=== PATIENT | male | born 1965 | race Caucasian/White ===

== ENCOUNTER 2018-10-26 08:41 | Emergency (ER) | payer BC ==
[2018-10-26 08:49] VITALS: BP 142/98; PULSE 92; TEMP 97.9; BMI 33.9
[2018-10-26] MEDS ORDERED: IBUPROFEN 600 MG TABLET (FP) PO ONE ×2 (08:55→08:59)
[2018-10-26] MEDS ORDERED: ALBUTEROL SO4 2.5/IPRATROPIUM 0.5 INH SOL 3 ML VIAL.NEB. NEB ONE ×2 (08:59→09:21)
--- NOTE | 2018-10-26 09:02 | PDOC ---
History of Present Illness - General Chief Complaint: Cold Symptoms Stated Complaint: productive cough Time Seen by Provider: 10/26/18 08:43 History Source: Patient, Family Exam Limitations: No Limitations - History of Present Illness Initial Comments: 10/26/18 09:01 HPI 53 year old male, with a significant past medical history of pancreatitis, pancreatic and liver cysts, hernia operations (3x), large mass removed from intestines by colonoscopy (3 years ago), intestinal polyps presenting to the ED with 1 week of intermittent productive cough, chest tightness and wheezing/SOB. He notes a productive brown cough and mild nasal congestion. Bilateral Chest discomfort worse with coughing and moving, +nausea. +subjective chills and sweats. +myalgias, in his legs, arms, back and chest wall. Has been taking nyquil and tylenol with effect to the cough. 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 No travel history. No new changes in medications. Allergies: levaquin Past Medical History: pancreatitis, pancreatic and liver cysts, hernia operations (3x), large mass removed from intestines by colonoscopy (3 years ago) , intestinal polyps Social history: Lives with family. No smoking. No alcohol. No illicit drugs. Surgical history: inguinal hernia repairs, intestinal polypectomies Family history: noncontributory PMD: Dr Nic LOTT Constitutional: no fevers. +sweats. +subjective chills. HEENT: +hoarse voice, sore throat; no headache or dizziness. No ear pain. No visual/hearing disturbances. CVS: no syncope or palpitations. +chest tightness Resp: +cough, congestion, +wheezing, SOB Gastrointestinal: no abdominal pain, diarrhea or vomiting. +nausea. Genitourinary: no urinary sx, hematuria. MUSCULOSKELETAL: +myalgias, +neck pain, +back pain. No arthralgias. SKIN: no redness or skin changes, no discharge, no rash. No wounds. Hematologic: no easy bruising/bleeding. NEUROLOGIC: No headache, dizziness, LOC or altered mental status. No weakness, numbness or tingling. Allergic/Immunologic: no environemental allergies All other systems reviewed and negative, or as documented in HPI. PE: General: Well appearing, awake and alert, NAD. speaking full clear sentences. HEENT: NCAT, PERRL, EOMI, clear conjunctiva, anicteric, moist mucus membranes, clear oropharynx, no oral lesions.. +hoarse voice. Neck: neck supple, FROM Resp: +coughing. CTAB, normal and even respirations, no respiratory distress CVS: RRR, no murmurs, 2+ peripheral pulses throughout, no peripheral edema Abdomen: soft, NTND, no peritoneal signs. Back: nontender, normal inspection and ROM MSK: no edema, OLIVAREZ x4, ROM intact. No clubbing or cyanosis. normal bulk and tone. Extremities: no calf tenderness Neuro: alert, oriented appropriately; no focal neurologic deficits Skin: warm and well perfused, cap refill <2 sec, normal color Past History - Past Medical History Allergies/Adverse Reactions: Allergies Allergy/AdvReac Type Severity Reaction Status Date / Time levofloxacin [From Levaquin] Allergy Verified 10/26/18 08:42 Home Medications: Ambulatory Orders Atorvastatin Ca [Lipitor] 10 mg PO DAILY 01/16/14 Albuterol Sulfate Inhaler - [Ventolin HFA Inhaler -] 1 - 2 inh PO Q4H PRN #1 inhaler 10/26/18 Azithromycin [Zithromax 250mg Tablets -] 250 mg PO UTDICT #6 tab 10/26/18 COPD: No CHF: No GI Disorders: (COLITIS H/O) Hypercholesterolemia: Yes Thyroid Disease: No - Surgical History Abdominal Surgery: Yes (2 hernia repair) Orthopedic Surgery: No - Suicide/Smoking/Psychosocial Hx Smoking History: Never smoked Have you smoked in the past 12 months: No Hx Alcohol Use: No Drug/Substance Use Hx: No Substance Use Type: None *Physical Exam - Vital Signs Last Vital Signs Temp Pulse Resp BP Pulse Ox 97.9 F 92 H 18 142/98 99 10/26/18 08:42 10/26/18 08:42 10/26/18 08:42 10/26/18 08:42 10/26/18 08:42 Moderate Sedation - Procedure Monitoring Vital Signs: Procedure Monitoring Vital Signs Temperature 97.9 F 10/26/18 08:42 Pulse Rate 92 H 10/26/18 08:42 Respiratory Rate 18 10/26/18 08:42 Blood Pressure 142/98 10/26/18 08:42 O2 Sat by Pulse Oximetry (%) 99 10/26/18 08:42 Heart Score/ECG Review - ECG Impressions Normal ECG: Yes Comment:: 10/26/18 09:57 EKG normal sinus rhythm, no interval abnormalities, narrow QRS, ST and T wave segments and morphology normal. Nonspecific T wave abnormalities ED Treatment Course - RADIOLOGY Radiology Studies Ordered: Category Date Time Status CHEST PA & LAT [RAD] Stat Radiology 10/26/18 08:56 Ordered Medical Decision Making - Medical Decision Making 10/26/18 09:56 Hpi as documented VS wnl, no fever, no tachy or hypoxia/respiratory distress. DDx URI, viral syndrome. Pneumonia, pleurisy, influenza, bronchitis. No smoking history. No PE risk factors, more likely infectious. EKG nonischemic, no e/o vito - or myocarditis. No pleuritic chest pain, most of chest discomfort with coughing and laterally/diffusely. Also 1 week of sx, so no tamiflu benefit or testing. Will do CXR to check for pna Chest Xray Interpreted by ED Physician: CXR (1 view): no acute abnormality: no infiltrates/ PNA, bones appear intact and structures normal alignment, cardiac silhouette within normal limits. no free air under diaphragm, no pneumothorax. ED course: no acute events, HD appropriate. Given duonebs x3, analgesia with ibuprofen, reassessed and feels much improved.. Pt and family request abx, despite neg CXR and no e/o pneumonia, discussed risks and benefits of treatment, as this is most likely viral, but pt elects for abx in case does not resolve. Will rx Zpak x 5 day course per pt request.. salt water gargles and warm lemon tea is appropriate as well for soothing qualities for sore throat/cough. minimize spread of infection given contagious nature, and cover your mouth and wash your hands adequately with soap and water. Stay well hydrated and rest. otc mucinex or cough drops as needed. rx albuterol inhaler prn Q4-6 hr for cough/wheeze. expectant management. Pt informed of my clinical impression, treatment recommendations and disposition plan. All questions answered to patient's satisfaction and expressed understanding and comfort with this. Reasons for returning to the ED sooner discussed with the patient otherwise, follow up with primary care physician. At the time of discharge, the patient is alert, clinically improved, tolerating po and verbalizes understanding of instructions. Patient does not suffer from an acute life-threatening medical condition at this time she is safe for outpatient follow-up. 10/26/18 09:57 *DC/Admit/Observation/Transfer Diagnosis at time of Disposition: Bronchitis URI (upper respiratory infection) Qualifiers: URI type: unspecified URI Qualified Code(s): J06.9 - Acute upper respiratory infection, unspecified - Discharge Dispostion Disposition: HOME Condition at time of disposition: Stable Decision to Admit order: No - Prescriptions Prescriptions: Albuterol Sulfate Inhaler - [Ventolin HFA Inhaler -] 1 - 2 inh PO Q4H PRN #1 inhaler PRN Reason: Cough Azithromycin [Zithromax 250mg Tablets -] 250 mg PO UTDICT #6 tab - Referrals Referrals: Sanford Lucero MD [Primary Care Provider] - - Patient Instructions Printed Discharge Instructions: DI for Acute Bronchitis, DI for Viral Upper Respiratory Infection -- Adult Additional Instructions: Your respiratory infection that can cause a fever, cough, and trouble breathing. Please continue all antibiotics as directed until complete. Nutrition is important - eat small frequent meals. Get lots of rest and drink fluids. Call your Primary Care Doctor upon arrival home from the hospital and make a follow-up appointment in 2-3 days. If your cough worsens, you develop a fever greater than 100.4, you develop shaking chills, a fast heartbeat, trouble breathing and/or feel you are are breathing much faster than usual, call your Primary Care Doctor or return to the ED. Make sure you wash your hands frequently. you were not tested for the flu because you have had symptoms x 1 week, and out of window for tamiflu benefit of time course reduction salt water gargles and warm lemon tea is appropriate as well for soothing qualities for sore throat/cough. minimize spread of infection given contagious nature, and cover your mouth and wash your hands adequately with soap and water. Stay well hydrated and rest. you can also take mucinex for breaking up your mucus when you cough you can take over the counter cough drops as needed as well. May use the albuterol inhaler every 4-6 hours as needed for cough and breathing to clear up your airways if there is wheezing. Return precautions include respiratory distress, difficulty breathing, chest pain, lethargy, confusion, dehydration, high fevers or pain. - Post Discharge Activity Forms/Work/School Notes: Back to Work
[2018-10-26] MEDS: ALBUTEROL SO4 2.5/IPRATROPIUM 0.5 INH SOL 3 ML VIAL.NEB. NEB SCH ×4 (09:09→09:45)
--- NOTE | 2018-10-26 12:38 | EKG ---
Test Reason : Blood Pressure : / mmHG Vent. Rate : 090 BPM Atrial Rate : 090 BPM P-R Int : 158 ms QRS Dur : 102 ms QT Int : 362 ms P-R-T Axes : 038 003 029 degrees QTc Int : 442 ms NORMAL SINUS RHYTHM NON-SPECIFIC INTRA-VENTRICULAR CONDUCTION DELAY WHEN COMPARED WITH ECG OF 29-JAN-2014 15:20, NO SIGNIFICANT CHANGE WAS FOUND Confirmed by KUSHAL FINK MD ([id number]) on 10/26/2018 12:37:56 PM Referred By: Confirmed By:KUSHAL FINK MD
== END 2018-10-26 10:08 | disposition home or self-care (01) ==
LOC: FER 08:41
PROC: 3E0F7GC Introduction of Other Therapeutic Substance into Respiratory Tract, Via Natural or Artificial Opening (ICD-10-PCS; principal; 2018-10-26)
DX: J40 Bronchitis, not specified as acute or chronic (principal); J06.9 Acute upper respiratory infection, unspecified
CPT/HCPCS: 71046-TC-FY; 93005; 99281-25

== ENCOUNTER 2021-01-16 09:20 | Emergency (ER) | payer BC ==
[2021-01-16 09:28] VITALS: TEMP 97.9; BMI 34.5
[2021-01-16] MEDS ORDERED: LIDOCAINE 5% TOPICAL PATCH TP ONE (09:49)
[2021-01-16] MEDS ORDERED: KETOROLAC TROMETHAMINE 60 MG/2 ML VIAL IM ONE (09:49)
[2021-01-16] MEDS ORDERED: KETOROLAC TROMETHAMINE 60 MG/2 ML VIAL ONE (09:51)
[2021-01-16] MEDS ORDERED: LIDOCAINE 5% TOPICAL PATCH ONE (09:52)
[2021-01-16 10:56] VITALS: BP 138/96; PULSE 78
[2021-01-16] MEDS ORDERED: LIDOCAINE PATCH REMOVAL MC SCH (22:00)
== END 2021-01-16 10:50 | disposition home or self-care (01) ==
LOC: FER 09:20
PROC: 3E0233Z Introduction of Anti-inflammatory into Muscle, Percutaneous Approach (ICD-10-PCS; principal; 2021-01-16)
DX: M54.5 Low back pain (principal)
CPT/HCPCS: 99284-25

== ENCOUNTER 2021-03-06 06:27 | Inpatient (IN) | payer BC ==
[2021-03-03 16:54] VITALS: BMI 41.0
[2021-03-06] MEDS ORDERED: SEVOFLURANE 250 ML BTL ONE (07:20)
[2021-03-06] MEDS ORDERED: fentaNYL CITRATE 250 MCG/5 ML VIAL ONE (07:22)
[2021-03-06] MEDS ORDERED: ROCURONIUM BROMIDE 50 MG/5 ML SYRINGE ONE (07:23)
[2021-03-06] MEDS ORDERED: SUCCINYLCHOLINE CHLORIDE 200 MG/10 ML SYRINGE ONE (07:23)
[2021-03-06] MEDS ORDERED: PROPOFOL 20 ML ONE ×2 (07:23)
[2021-03-06] MEDS ORDERED: BUPIVACAINE HCL/PF 2.5 MG/ML - 30 ML VIAL IJ ONE ×5 (07:29→10:20)
[2021-03-06] MEDS ORDERED: MIDAZOLAM HCL 2 MG/2 ML SINGLE DOSE VIAL ONE (07:29)
[2021-03-06] MEDS ORDERED: BUPIVACAINE LIPOSOME/PF (EXPAREL) 266 MG/20 ML VIAL ONE (07:29)
[2021-03-06] MEDS ORDERED: LIDOCAINE HCL/PF 2% SDV 5ML VIAL ONE (08:30)
[2021-03-06] MEDS ORDERED: ceFAZolin SODIUM 1 GM VIAL ONE (08:53)
[2021-03-06] MEDS ORDERED: ONDANSETRON 4 MG/2 ML VIAL ONE ×2 (08:56→10:13)
[2021-03-06] MEDS ORDERED: DEXAMETHASONE SOD PHOSPHATE 4 MG/1 ML VIAL ONE (08:56)
[2021-03-06] MEDS ORDERED: EPHEDRINE SULFATE/0.9% NACL/PF 50 MG/10 ML SYRINGE NR ONE (09:04)
[2021-03-06] MEDS ORDERED: GLYCOPYRROLATE 0.2 MG/1 ML VIAL ONE (10:14)
[2021-03-06] MEDS ORDERED: NEOSTIGMINE METHYLSULFATE 0.5 MG/1 ML - 10 ML MDV ONE (10:14)
[2021-03-06] MEDS ORDERED: ONDANSETRON 4 MG/2 ML VIAL IVPUSH PRN ×2 (10:39→10:44)
[2021-03-06] MEDS ORDERED: HYDROmorphone HCl 2 MG/ML VIAL IVPB PRN ×2 (10:41→10:42)
[2021-03-06] MEDS ORDERED: LACTATED RINGERS SOLUTION 1,000 ML IV SCH (10:45)
[2021-03-06] MEDS ORDERED: METOCLOPRAMIDE HCL INJECTION 10 MG/2 ML VIAL ONE (10:51)
[2021-03-06] MEDS ORDERED: FAMOTIDINE 20 MG/50 ML IVPB 20 MG/50 ML MG IVPB ONE (10:51)
[2021-03-06] MEDS: METOCLOPRAMIDE HCL INJECTION 10 MG/2 ML VIAL IVPUSH SCH ×4 (10:55→21:45)
[2021-03-06] MEDS ORDERED: FAMOTIDINE 20 MG PREMIXED IVPB IVPB ONE (10:56)
[2021-03-06 11:37] LABS: MCH 30.7 pg (25.7-33.7); MCHC 33.3 g/dl (32.0-35.9); MEAN CELL VOLUME 92.1 fl (80-96); MEAN PLT VOLUME 8.6 fl (7.5-11.1); PLATELET COUNT 211 10^3/uL (134-434); RBC 4.89 M/mm3 (4.00-5.60); RDW 12.6 % (11.9-15.9); WHITE BLOOD COUNT 8.4 K/mm3 (4.0-10.8)
[2021-03-06 11:41] LABS: ALBUMIN 3.8 g/dl (3.4-5.0); BILIRUBIN,TOTAL 0.9 mg/dl (0.2-1); CALCIUM 8.8 mg/dl (8.5-10); CREATININE 1.1 mg/dl (0.55-1.3); TOT PROT 6.3 g/dl (6.4-8.2)
[2021-03-06] MEDS: SODIUM CHLORIDE 1,000 ML IV SCH (12:50)
[2021-03-06] MEDS ORDERED: HYDROmorphone HCL/PF 1 MG/ML VIAL IVPB PRN ×2 (13:54)
[2021-03-06 15:16] LABS: HIV INTERPRETATION NEGATIVE (NEGATIVE)
[2021-03-06 20:54] LABS: HEMATOCRIT 42.2 % (35.4-49); HEMOGLOBIN 14.7 GM/dl (11.7-16.9); MCH 31.7 pg (25.7-33.7); MCHC 34.8 g/dl (32.0-35.9); MEAN PLT VOLUME 8.2 fl (7.5-11.1); PLATELET COUNT 209 10^3/uL (134-434); RBC 4.64 M/mm3 (4.00-5.60); RDW 12.4 % (11.9-15.9); WHITE BLOOD COUNT 12.4 K/mm3 (4.0-10.8)
[2021-03-06 21:08] LABS: ALBUMIN 3.8 g/dl (3.4-5.0); BILIRUBIN,TOTAL 1.1 mg/dl (0.2-1); CALCIUM 8.5 mg/dl (8.5-10); TOT PROT 6.5 g/dl (6.4-8.2)
[2021-03-06] MEDS: FAMOTIDINE 20 MG/50 ML IVPB 20 MG/50 ML MG IVPB SCH (21:44)
[2021-03-07] MEDS: METOCLOPRAMIDE HCL INJECTION 10 MG/2 ML VIAL IVPUSH SCH ×2 (04:47→10:23)
[2021-03-07 08:34] LABS: ALBUMIN 3.8 g/dl (3.4-5.0); BILIRUBIN,TOTAL 1.4 mg/dl (0.2-1); CALCIUM 9.1 mg/dl (8.5-10); CREATININE 0.9 mg/dl (0.55-1.3); TOT PROT 6.5 g/dl (6.4-8.2)
[2021-03-07 08:49] VITALS: BP 164/96; PULSE 82; TEMP 97.8
[2021-03-07 08:59] LABS: HEMATOCRIT 41.1 % (35.4-49); HEMOGLOBIN 14.3 GM/dl (11.7-16.9); MCH 31.7 pg (25.7-33.7); MCHC 34.7 g/dl (32.0-35.9); MEAN CELL VOLUME 91.5 fl (80-96); MEAN PLT VOLUME 8.5 fl (7.5-11.1); PLATELET COUNT 226 10^3/uL (134-434); RDW 12.4 % (11.9-15.9); WHITE BLOOD COUNT 13.9 K/mm3 (4.0-10.8)
[2021-03-07] MEDS: FAMOTIDINE 20 MG/50 ML IVPB 20 MG/50 ML MG IVPB SCH (10:23)
[2021-03-07] MEDS: SODIUM CHLORIDE 1,000 ML IV SCH (10:30)
[2021-03-07] MEDS ORDERED: oxyCODONE HCL 5 MG TABLET PO PRN (12:59)
== END 2021-03-07 14:40 | disposition home or self-care (01) | DRG 621 ==
LOC: FM/S 06:27
PROVIDERS: ADMIT Surgery; ATTEND Surgery
PROC: 0DB64Z3 Excision of Stomach, Percutaneous Endoscopic Approach, Vertical (ICD-10-PCS; principal; 2021-03-06 08:00)
PROC: 0FB24ZX Excision of Left Lobe Liver, Percutaneous Endoscopic Approach, Diagnostic (ICD-10-PCS; 2021-03-06 08:00)
DX: E66.01 Morbid (severe) obesity due to excess calories (principal); Z68.41 Body mass index [BMI] 40.0-44.9, adult; R16.0 Hepatomegaly, not elsewhere classified
CPT/HCPCS: 36415; 74240-TC-FY; 80053; 85027; 86803; 86850; 86900; 86901; 87389; 88305-TC; 94760; 97010-GP; 97116-GP; 97161-GP; Q9967

== ENCOUNTER 2022-01-26 10:55 | Emergency (ER) | payer BC ==
[2022-01-26 11:03] VITALS: TEMP 98; BMI 36.9
[2022-01-26] MEDS ORDERED: ACETAMINOPHEN 500 MG TABLET (FP) PO ONE (11:23)
[2022-01-26] MEDS ORDERED: MAG HYDROX/AL HYDROX/SIMETH 30 ML UNIT-DOSE CUP PO ONE (11:23)
[2022-01-26] MEDS ORDERED: FAMOTIDINE 20 MG TABLET PO ONE (11:23)
[2022-01-26] MEDS ORDERED: FAMOTIDINE 20 MG/50 ML IVPB 20 MG/50 ML MG IVPB ONE ×2 (11:33→11:35)
[2022-01-26] MEDS ORDERED: ACETAMINOPHEN 1000 MG/100 ML BAG IVPB ONE (11:33)
[2022-01-26] MEDS ORDERED: ACETAMINOPHEN 160 MG/5 ML 473ML BULK BOTTLE ONE (11:35)
[2022-01-26] MEDS ORDERED: MAG HYDROX/AL HYDROX/SIMETH 30 ML UNIT-DOSE CUP ONE (11:35)
[2022-01-26] MEDS ORDERED: ACETAMINOPHEN INJECTION 100 ML IVPB ONE (11:37)
[2022-01-26 12:12] LABS: INR 1.33 (0.83-1.09); PROTHROMBIN TIME (PATIENT) 15.3 SEC (9.7-13.0)
[2022-01-26 12:14] LABS: ACTIVATED PTT 33.6 SECONDS (25.2-36.5)
[2022-01-26 12:22] LABS: ALBUMIN 4.1 g/dl (3.4-5.0); BILIRUBIN,TOTAL 1.3 mg/dl (0.2-1); CALCIUM 9.9 mg/dl (8.5-10); CREATININE 0.8 mg/dl (0.55-1.3); HEMATOCRIT 42.4 % (35.4-49); MAGNESIUM 1.9 mg/dL (1.8-2.4); MCH 32.1 pg (25.7-33.7); MCHC 35.4 g/dl (32.0-35.9); MEAN CELL VOLUME 90.7 fl (80-96); MEAN PLT VOLUME 8.1 fl (7.5-11.1); PHOSPHOROUS 3.2 mg/dl (2.5-4.9); PLATELET COUNT 235.8 10^3/uL (134-434); RBC 4.68 10^6/uL (4.00-5.60); RDW 13.8 % (11.9-15.9); TOT PROT 6.5 g/dl (6.4-8.2); WHITE BLOOD COUNT 6.9 10^3/uL (4.0-10.8)
[2022-01-26] MEDS ORDERED: morphine SULFATE 4 MG/ML VIAL IVPUSH ONE (14:30)
[2022-01-26] MEDS ORDERED: morphine SULFATE 4 MG/ML VIAL ONE (14:38)
[2022-01-26 15:18] VITALS: BP 132/88; PULSE 76
== END 2022-01-26 15:36 | disposition home or self-care (01) ==
LOC: FER 10:55
PROC: 3E0333Z Introduction of Anti-inflammatory into Peripheral Vein, Percutaneous Approach (ICD-10-PCS; principal; 2022-01-26)
PROC: 3E033GC Introduction of Other Therapeutic Substance into Peripheral Vein, Percutaneous Approach (ICD-10-PCS; 2022-01-26)
PROC: 3E033NZ Introduction of Analgesics, Hypnotics, Sedatives into Peripheral Vein, Percutaneous Approach (ICD-10-PCS; 2022-01-26)
DX: R10.13 Epigastric pain (principal)
CPT/HCPCS: 36415; 74177-TC; 80053; 83605; 83690; 83735; 84100; 84484; 85025; 85610; 85730; 93005; 99285-25; C9803-CS; U0003; U0005

== ENCOUNTER 2022-02-13 08:27 | Day surgery (SDC) | payer BC ==
[2022-01-30 15:19] VITALS: BMI 36.9
[2022-02-13] MEDS ORDERED: PROPOFOL 20 ML ONE ×2 (11:00)
[2022-02-13] MEDS ORDERED: MIDAZOLAM HCL 2 MG/2 ML SINGLE DOSE VIAL ONE (11:00)
[2022-02-13] MEDS ORDERED: ROCURONIUM BROMIDE 50 MG/5 ML SYRINGE ONE (11:02)
[2022-02-13] MEDS ORDERED: VANCOMYCIN 1,000 MG VIAL (RESTRICTED TO ID ONLY) ONE (12:11)
[2022-02-13] MEDS ORDERED: BUPIVACAINE HCL/PF 0.25% (2.5MG/ML) 10 ML VIAL ONE (13:14)
[2022-02-13] MEDS ORDERED: BUPIVACAINE HCL/PF 0.25% (2.5MG/ML) 10 ML VIAL IJ ONE (13:28)
[2022-02-13] MEDS ORDERED: oxyCODONE HCL 5 MG TABLET PO PRN (13:44)
[2022-02-13] MEDS ORDERED: ONDANSETRON 4 MG/2 ML VIAL IVPUSH PRN (13:44)
[2022-02-13] MEDS ORDERED: PROMETHAZINE HCL 25 MG/1 ML VIAL IVPUSH PRN (13:44)
[2022-02-13] MEDS ORDERED: LACTATED RINGERS SOLUTION 1,000 ML IV SCH (13:45)
[2022-02-13] MEDS ORDERED: FENTANYL CITRATE/PF 50 MCG/ML VIAL ONE ×2 (14:04→14:23)
[2022-02-13 14:17] LABS: ALBUMIN 3.8 g/dl (3.4-5.0); CALCIUM 9.3 mg/dl (8.5-10); TOT PROT 6.1 g/dl (6.4-8.2)
[2022-02-13 14:26] LABS: HEMATOCRIT 41.9 % (35.4-49); HEMOGLOBIN 14.7 G/dL (11.7-16.9); MCH 31.9 pg (25.7-33.7); MEAN CELL VOLUME 91.3 fl (80-96); MEAN PLT VOLUME 8.4 fl (7.5-11.1); PLATELET COUNT 219.7 10^3/uL (134-434); RBC 4.59 10^6/uL (4.00-5.60); RDW 14.4 % (11.9-15.9); WHITE BLOOD COUNT 8.7 10^3/uL (4.0-10.8)
[2022-02-13] MEDS ORDERED: oxyCODONE HCL 5 MG TABLET ONE (14:48)
[2022-02-13] MEDS ORDERED: oxyCODONE HCL 5 MG TABLET PO ONE (14:50)
[2022-02-13 15:02] VITALS: TEMP 97.7
[2022-02-13 16:54] VITALS: BP 138/83; PULSE 88
== END 2022-02-13 17:33 | disposition home or self-care (01) ==
LOC: FASU 08:27
PROVIDERS: ATTEND Surgery
PROC: 0WUF4JZ Supplement Abdominal Wall with Synthetic Substitute, Percutaneous Endoscopic Approach (ICD-10-PCS; principal; 2022-02-13 11:38)
DX: K43.9 Ventral hernia without obstruction or gangrene (principal); K66.0 Peritoneal adhesions (postprocedural) (postinfection)
CPT/HCPCS: 36415; 80053; 85025; 94760